=== PATIENT | male | born 1995 | race Caucasian/White ===

== ENCOUNTER 2017-05-17 05:17 | Emergency (ER) | payer BC, OTHER ==
[2017-05-17 05:21] VITALS: TEMP 97.9
--- NOTE | 2017-05-17 05:29 | EDPHY ---
H & P Stated Complaint: anxiety, "brain fart" Time Seen by Provider: 05/17/17 05:20 HPI/ROS: HPI CHIEF COMPLAINT: Anxiety/panic attack HISTORY OF PRESENT ILLNESS: Patient is a 21-year-old male, he does have a history of anxiety, however does take any medications, he states he woke up abruptly around 5:00 a.m. Feeling very anxious. He is not sure what precipitated it. He felt like he was having a panic attack decided come the emergency room for further evaluation. He denies any chest pain or shortness of breath. States feels very anxious. He denies any drug use. He does state that this last weekend he did drink a large amount of alcohol. He denies wanting to hurt himself or anybody else. Denies suicidal ideation or depression. Patient does state that he feels anxious. It is noted at triage and back and ER room 17 that he is acting slightly strange. Unclear if he is intoxicated with a substance or not. 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 Denies illicit drugs. Does state he had alcohol this weekend. Family History: Noncontributory ROS REVIEW OF SYSTEMS: A comprehensive 10 point review of systems is otherwise negative aside from elements mentioned in the history of present illness. Exam Constitutional appears slightly anxious, triage nursing summary reviewed, vital signs reviewed, awake/alert. Eyes normal conjunctivae and sclera, EOMI, PERRLA. HENT normal inspection, atraumatic, moist mucus membranes, no epistaxis, neck supple/ no meningismus, no raccoon eyes. Respiratory clear to auscultation bilaterally, normal breath sounds, no respiratory distress, no wheezing. Cardiovascular rate normal, regular rhythm, no murmur, no edema, distal pulses normal. Gastrointestinal soft, non-tender, no rebound, no guarding, normal bowel sounds, no distension, no pulsatile mass. Genitourinary no CVA tenderness. Musculoskeletal no midline vertebral tenderness, full range of motion, no calf swelling, no tenderness of extremities, no meningismus, good pulses, neurovascularly intact. Skin pink, warm, & dry, no rash, skin atraumatic. Neurologic awake, alert and oriented x 3, AAOx3, moves all 4 extremities equally, motor intact, sensory intact, CN II-XII intact, normal cerebellar, normal vision, normal speech. Psychiatric anxious, Heme/Lymph/Immune no lymphadenopathy. Differential Diagnosis: Includes but is not limited to in a particular order acute anxiety, panic attack. Medical Decision Making: Plan for this patient 1 mg p. O. Ativan for acute anxiety. Urine drug screen. Re-evaluation: 0658: Patient feels slightly better after p. O. Ativan. He would like mental health resources and would like some did talk to. He does not need to be on M1 hold. He is not suicidal/homicidal and is not acutely psychotic. Will have mental health give him resources. 0704: I did re-evaluate the patient this time is resting comfortably. He does feel better. See 1 mg p.o. Ativan here. Mental health resources were given to him. Contracts for safety. He does not want hurt himself or anybody else. He is requesting discharge. Return precautions discussed with him. Source: Patient - Personal History Current Tetanus/Diphtheria Vaccine: No - Medical/Surgical History Hx Asthma: No Hx Chronic Respiratory Disease: No Hx Diabetes: No Hx Cardiac Disease: No Hx Renal Disease: No Hx Cirrhosis: No Hx Alcoholism: No Hx HIV/AIDS: No Hx Splenectomy or Spleen Trauma: No Other PMH: denies - Social History Smoking Status: Never smoked Constitutional: Initial Vital Signs Temperature (C) 36.6 C 05/17/17 05:19 Heart Rate 119 H 05/17/17 05:19 Respiratory Rate 18 05/17/17 05:19 Blood Pressure 123/79 H 05/17/17 05:19 O2 Sat (%) 97 05/17/17 05:19 O2 Delivery Mode Room Air Allergies/Adverse Reactions: No Known Allergies Allergy (Verified 05/17/17 05:21) Home Medications: Medication Instructions Recorded NK [No Known Home Meds] 01/17/14 Medical Decision Making - Data Points Medications Given: Discontinued Medications Lorazepam (Ativan) 1 mg PO ONCE ONE Stop: 05/17/17 05:45 Last Admin: 05/17/17 05:59 Dose: 1 mg Departure - Departure Disposition: Home, Routine, Self-Care Clinical Impression: Panic attack Condition: Good Instructions: Anxiety (ED) Referrals: NONE *PRIMARY CARE P,. [Primary Care Provider] - As per Instructions
[2017-05-17] MEDS ORDERED: ACETAMINOPHEN 500 MG TAB ONE (05:42)
[2017-05-17] MEDS ORDERED: LORazepam 1 MG TAB PO ONE (05:44)
[2017-05-17 07:10] VITALS: BP 109/65; PULSE 82; RESP 16; O2SAT 96
== END 2017-05-17 07:09 | disposition home or self-care (01) ==
DX: F41.0 Panic disorder [episodic paroxysmal anxiety] (principal)